=== PATIENT | female | born 1960 | race Caucasian/White ===

== ENCOUNTER 2017-08-04 02:11 | Emergency (ER) | payer BC ==
[2017-08-04 03:29] VITALS: BP 139/82; PULSE 71; TEMP 97.8; BMI 28.0
--- NOTE | 2017-08-04 04:54 | PDOC ---
History of Present Illness - General Chief Complaint: Chest Pain Stated Complaint: CHEST PAIN - History of Present Illness Initial Comments: Patient is a 57 year old female, with a significant past medical history of HTN and GERD, who presents to the emergency department complaining of 2-3 weeks of chest pressure in the evenings and persistent dry cough. Pt states was recently switched from lisinopril to losartan one month ago, due to severe, persistent cough. Pt endorses intermittent chest pressure "like an elephant sitting on my chest" upon waking in the middle of the night, with no alleviating or relieving factors, no radiation.. Pt also endorses a dry, hacking cough, worse in the mornings for the last 2-3 weeks. Pt has no cardiac hx and is not on AC. Pt states her BP was recently. Pt states she occasionally has GERD symptoms when eating large meals, but does not take an antacid. The patient denies chest pain, shortness of breath, headache or dizziness. Denies fever, chills, nausea, vomiting, diarrhea and constipation. Denies dysuria, frequency, urgency and hematuria. Allergies: Cipro - anaphylaxis Past surgical history: None Social History: Denies all toxic habits PMD: Not on staff 08/04/17 04:55 Past History - Past Medical History Allergies/Adverse Reactions: Allergies Allergy/AdvReac Type Severity Reaction Status Date / Time No Known Allergies Allergy Verified 08/04/17 03:29 Home Medications: Ambulatory Orders Lisinopril/Hydrochlorothiazide [Lisinopril-Hctz 10-12.5 mg Tab] 12.5 mg PO DAILY 08/04/17 Metoprolol Tartrate 25 mg PO DAILY 08/04/17 - Suicide/Smoking/Psychosocial Hx Smoking History: Never smoked Have you smoked in the past 12 months: No Information on smoking cessation initiated: No Hx Alcohol Use: No Drug/Substance Use Hx: No Review of Systems - Review of Systems Comments:: GENERAL/CONSTITUTIONAL: No fever or chills. No weakness. HEAD, EYES, EARS, NOSE AND THROAT: No change in vision. No ear pain or discharge. No sore throat. 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 GASTROINTESTINAL: No nausea, vomiting, diarrhea or constipation. GENITOURINARY: No dysuria, frequency, or change in urination. MUSCULOSKELETAL: No joint or muscle swelling or pain. No neck or back pain. SKIN: No rash NEUROLOGIC: No headache, vertigo, loss of consciousness, or change in strength/ sensation. ENDOCRINE: No increased thirst. No abnormal weight change HEMATOLOGIC/LYMPHATIC: No anemia, easy bleeding, or history of blood clots. ALLERGIC/IMMUNOLOGIC: No hives or skin allergy. 08/04/17 04:56 *Physical Exam - Vital Signs Last Vital Signs Temp Pulse Resp BP Pulse Ox 97.8 F 71 19 139/82 100 08/04/17 03:26 08/04/17 03:26 08/04/17 03:26 08/04/17 03:26 08/04/17 03:26 - Physical Exam Comments: GENERAL: Middle aged, Awake, alert, and fully oriented, in no acute distress HEAD: No signs of trauma, normocephalic, atraumatic EYES: PERRLA, EOMI, sclera anicteric, conjunctiva clear ENT: Auricles normal inspection, hearing grossly normal, nares patent, oropharynx clear without exudates. Moist mucosa NECK: Normal ROM, supple, no lymphadenopathy, JVD, or masses LUNGS: No distress, speaks full sentences, clear to auscultation bilaterally HEART: Regular rate and rhythm, normal S1 and S2, no murmurs, rubs or gallops, peripheral pulses normal and equal bilaterally. ABDOMEN: Soft, nontender, normoactive bowel sounds. No guarding, no rebound. No masses EXTREMITIES : Normal inspection, Normal range of motion, no edema. No clubbing or cyanosis. NEUROLOGICAL: Cranial nerves II through XII grossly intact. Normal speech, normal gait, no focal sensorimotor deficits SKIN: Warm, Dry, normal turgor, no rashes or lesions noted 08/04/17 04:56 ED Treatment Course - LABORATORY CBC & Chemistry Diagram: 08/04/17 05:08 08/04/17 05:08 Medical Decision Making - Medical Decision Making Patient is a 57 year old female, with a significant past medical history of HTN and GERD, who presents to the emergency department complaining of 2-3 weeks of chest pressure in the evenings and persistent dry cough. DDX includes GERD, esophageal spasm, ACS, costochondritis, MSK pain, PUD, chronic cough. Plan: - EKG - CBC, CMP, trops, Pt/INR - Will likely discharge home with outpt f/u with PCP for further adjustment of BP regimen; will recommend H2 manfred for GERD symptoms 08/04/17 05:26 *DC/Admit/Observation/Transfer Diagnosis at time of Disposition: GERD (gastroesophageal reflux disease) Qualifiers: Esophagitis presence: without esophagitis Qualified Code(s): K21.9 - Gastro- esophageal reflux disease without esophagitis - Discharge Dispostion Disposition: HOME Condition at time of disposition: Fair Decision to Admit order: No - Referrals Referrals: Celeste Keane [Primary Care Provider] - - Patient Instructions Printed Discharge Instructions: Gastroesophageal Reflux Disease (Alternative Therapy), DI for Gastroesophageal Reflux Disease (GERD) Additional Instructions: During your visit to the [facility] ED, you were evaluated for dry cough and chest pressure upon waking at night. You received an ekg standard lab tests, which were relatively unremarkable. You are being discharged home with outpatient follow-up with your primary care provider. You are likely suffering from GERD. We recommend taking Pepcid AC 20mg once a day until your symptoms resolve. Please follow-up with your primary care provider regarding switching your hypertension medication. Please take Pepcid 20mg once a day for GERD. If you experience any of the following symptoms, please return to the ED: - Worsening pain in your chest, jaw or neck - Sudden shortness of breath - Changes in vision, numbness/weakness in any extremities, or persistent dizziness/loss of consciousness - Any new or concerning symptoms - Post Discharge Activity
[2017-08-04 05:21] LABS: BASO % 0.7 % (0-2.0); EOS % 1.3 % (0-4.5); HEMATOCRIT 40.6 % (32.4-45.2); HEMOGLOBIN 13.8 GM/dL (10.7-15.3); LYMPH % 30.3 % (8-40); MCH 29.1 pg (25.7-33.7); MCHC 33.9 g/dl (32.0-36.0); MEAN CELL VOLUME 85.9 fl (80-96); MEAN PLT VOLUME 6.9 fl (7.5-11.1); MONO % 7.9 % (3.8-10.2); NEUT % 59.8 % (42.8-82.8); PLATELET COUNT 255 K/MM3 (134-434); RBC 4.73 M/mm3 (3.60-5.2); RDW 13.6 % (11.6-15.6); WHITE BLOOD COUNT 7.3 K/mm3 (4.0-10.0)
[2017-08-04 05:37] LABS: INR 0.98 (0.82-1.09); PROTHROMBIN TIME (PATIENT) 11.1 SEC (9.7-13.0)
[2017-08-04 05:48] LABS: ANION GAP 6 (8-16); BILIRUBIN,TOTAL 0.7 mg/dL (0.2-1.0); BLOOD UREA NITROGEN 15 mg/dL (7-18); CALCIUM 9.2 mg/dL (8.5-10.1); CHLORIDE 104 mmol/L (98-107); CO2 29 mmol/L (21-32); CREATININE 0.8 mg/dL (0.55-1.02); GLUCOSE,RANDOM 103 mg/dL (74-106); POTASSIUM 3.9 mmol/L (3.5-5.1); SGOT/AST 13 U/L (15-37); SGPT/ALT 25 U/L (12-78); SODIUM 139 mmol/L (136-145)
[2017-08-04 05:51] LABS: ALK PHOS 54 U/L (45-117)
--- NOTE | 2017-08-04 06:30 | PDOC ---
Attending Attestation - Resident Resident Name: Gael Singh - ED Attending Attestation I have performed the following: I have examined & evaluated the patient, The case was reviewed & discussed with the resident, I agree w/resident's findings & plan, Exceptions are as noted - Medical Decision Making 08/04/17 06:28 57yoF hx of HTN presnets w/ nocturnal waking w/ epigastric/retrosternal chest pain and dry cough. Does not happen dring daytime, no relation to physical activity. Most likely reflux based upon history. - labs - ekg - DC w/ PMD f/u.
--- NOTE | 2017-08-04 08:45 | EKG ---
Test Reason : Blood Pressure : / mmHG Vent. Rate : 069 BPM Atrial Rate : 069 BPM P-R Int : 198 ms QRS Dur : 098 ms QT Int : 412 ms P-R-T Axes : 048 006 019 degrees QTc Int : 441 ms NORMAL SINUS RHYTHM NONSPECIFIC ST AND T WAVE ABNORMALITY ABNORMAL ECG NO PREVIOUS ECGS AVAILABLE Confirmed by ROSA VILLAFANA, MARIA C ([id number]) on 08/04/2017 8:44:52 AM Referred By: Confirmed By:MARIA C LEE MD
== END 2017-08-04 06:43 | disposition home or self-care (01) ==
LOC: JER 02:11
DX: K21.9 Gastro-esophageal reflux disease without esophagitis (principal); I10 Essential (primary) hypertension
CPT/HCPCS: 36415; 80053; 82550; 84484; 85025; 85610; 93005; 93010; 99283-25